=== PATIENT | male | born 1985 | race Caucasian/White ===

== ENCOUNTER 2022-06-26 21:34 | Emergency (ER) | payer OTHER, SELFPAY ==
[2022-06-26 21:40] VITALS: BP 137/79; PULSE 94; RESP 16; TEMP 36.9; O2SAT 97; BMI 22.3
--- NOTE | 2022-06-26 23:35 | ED.CHESTPAIN ---
HPI - Chest Pain General Chief Complaint: Chest Pain Stated Complaint: Chest pain, High HR Time Seen by Provider: 06/26/22 21:40 Mode of arrival: Ambulatory History of Present Illness HPI narrative: 36-year-old male nonsmoker and previously healthy patient with a relatively recent diagnosis of SVT by MI leo presents with vague chest discomfort this afternoon that seemed to be related to few hours of a rapid heart rate. We did consult his Apple watch which noted his heart rate to be in the 150s, this resolved either in the waiting room were soon after being placed in a room. He denies any new medications or dietary change. He is not dizzy nor weak or lightheaded. He admittedly has been a bit nauseated since he has been dealing with these episodes of SVT and the subsequent workup. He had been seen and evaluated at an outside facility and had subsequent cardiac referral and has had an outpatient echo and is scheduled for a stress test next week. He denies any exertional symptoms. He states that when his heart is racing he developed chest pressure, shortness of breath and lightheadedness. He denies recent travel, injury or trauma, history of blood clot or cancer Related Data Home Medications Medication Instructions Recorded Confirmed No Known Home Medications 06/26/22 06/26/22 Allergies Allergy/AdvReac Type Severity Reaction Status Date / Time ketoconazole Allergy Verified 06/26/22 21:44 Review of Systems Review of Systems Narrative: GENERAL: Denies chills, fatigue, malaise, fever, sweats. HEENT: Denies sinus pain, ear pain, sore throat, difficulty swallowing, dizziness. RESPIRATORY: Denies dyspnea, cough, wheezing, hemoptysis, sputum. CARDIOVASCULAR: see HPI GASTROINTESTINAL: see HPI : Denies dysuria, frequency, incontinence, hematuria, urinary retention. MUSCULOSKELETAL: denies weakness, joint pain, or bony pain SKIN: Denies rash, skin lesions, or other NEUROLOGIC: Denies weakness, headache, numbness, change in speech, confusion, seizures, incoordination. PSYCHIATRIC: No concerning psychosocial issues. 12 point review of systems is negative except for those stated above Patient History Social History Smoking Status: Never smoker Smoking Status: Never smoker alcohol intake frequency: other Substance Use Type: does not use Exam Narrative Exam Narrative: GENERAL: [36] year old patient appears stated age. Well-developed patient, in mild distress. HEAD: Atraumatic. Normocephalic. EYES: Pupils equal round and reactive. Extraocular motions intact. No scleral icterus. No injection or drainage. ENT: Nose without bleeding, purulent drainage. Throat without erythema, tonsillar hypertrophy or exudate. Airway patent. NECK: Trachea midline. Non tender CARDIOVASCULAR: Regular rate and rhythm without murmurs, gallops, or rubs. RESPIRATORY: Clear to auscultation. Breath sounds equal bilaterally. No wheezes, rales, or rhonchi. GASTROINTESTINAL: Abdomen soft, non-tender, nondistended. EXTREMITIES: No edema or joint tenderness. BACK: Nontender without deformity or crepitance. No flank tenderness. NEURO: AOx3. SKIN: No rash or erythema of visible areas Initial Vital Signs Initial Vital Signs: Vital Signs Temperature 98.4 F 06/26/22 21:40 Pulse Rate 94 H 06/26/22 21:40 Respiratory Rate 16 06/26/22 21:40 Blood Pressure 137/79 06/26/22 21:40 Pulse Oximetry 97 06/26/22 21:40 Oxygen Delivery Method Room Air 06/26/22 21:40 Scores HEART Score Heart Score history: Slightly Suspicious Heart Score EKG: Normal Heart Score Age: < 45 years old Heart Score risk factors: No known risk factors Heart Score troponin: < or = to normal limit Heart Score Total: 0 PERC Score Age greater than or equal to 50 years: No Heart rate greater than or equal to 100 bpm: Yes Room Air O2 Sat less than 95%: No Unilateral leg swelling: No Recent trauma or surgery: No Hemoptysis: No Prior PE or DVT: No Hormone Use: No Total PERC Score: 1 Course Orders Ordered: Discontinued Medications Aspirin (Aspirin 81 Mg Chew Tab) 324 mg PO NOW ONE Stop: 06/26/22 23:59 Last Admin: 06/27/22 00:27 Dose: Not Given Documented By: RONAK Vital Signs Vital signs: Vital Signs - 8 hr 06/26/22 21:40 Temperature 98.4 F Pulse Rate 94 H Respiratory Rate 16 Blood Pressure 137/79 Pulse Oximetry 97 Oxygen Delivery Method Room Air MDM - Chest Pain Lab Data 06/26/22 23:45 06/26/22 23:45 Labs: Lab Results 06/26/22 06/26/22 06/26/22 Range/Units 23:45 23:45 23:45 WBC 7.5 (4.5-11.0) X10^3/uL RBC 5.18 (4.5-5.9) X10^6/uL Hgb 16.1 (13.5-17.5) g/dL Hct 45.8 (41-53) % MCV 88.4 (80-100) fL MCH 31.1 (26-34) PG MCHC 35.2 (30-36) % RDW 12.5 (11.6-14.8) % Plt Count 158 (150-400) X10^3/uL Neut % (Auto) 60.3 (50-75) % Lymph % (Auto) 28.2 (25-40) % [place] % (Auto) 9.4 (3-14) % Eos % (Auto) 1.3 L (2-4) % Baso % (Auto) 0.8 (0-2) % Neut # (Auto) 4500 (1513-9512) /uL Lymph # (Auto) 2100 (0974-6266) /uL [place] # (Auto) 700 (0-900) /uL Eos # (Auto) 100 (0-450) /uL Baso # (Auto) 100 (0-100) /uL ESR (0-15) MM/HR PT 13.0 H (10.1-12.7) SECONDS INR 1.1 (0.9-1.3) APTT 33 (26-36) SECONDS D-Dimer (<500) ng/ml Sodium 136 L (137-145) mmol/L Potassium 3.5 (3.4-5.1) mmol/L Chloride 99 (98-107) mmol/L Carbon Dioxide 26 (22-32) mmol/L BUN 14 (9-20) mg/dL Creatinine 0.94 (0.66-1.25) mg/dL Estimated GFR > 60 (>60) mL/min BUN/Creatinine Ratio 14.9 (6-22) Glucose 96 (70-100) mg/dL Calcium 9.6 (8.4-10.2) mg/dL Magnesium 2.0 (1.6-2.3) mg/dL Total Bilirubin 1.6 H (0.2-1.3) mg/dL AST 25 (17-59) IU/L ALT 22 (<50) IU/L Alkaline Phosphatase 44 (38-126) U/L Total Creatine Kinase 80 (55-170) U/L CK-MB (CK-2) TNP CK-MB (CK-2) Rel Index TNP Troponin I < 0.012 (0.01-0.034) ng/mL C-Reactive Protein (<1.0) mg/dL Total Protein 8.2 (6.3-8.2) g/dL Albumin 4.9 (3.5-5.0) g/dL Globulin 3.3 (1.7-4.1) g/dL Albumin/Globulin Ratio 1.5 (1.0-2.8) Lipase 60 (23-300) U/L SARS-CoV-2 (PCR) (Negative) 06/26/22 06/26/22 06/26/22 Range/Units 23:45 23:45 23:45 WBC (4.5-11.0) X10^3/uL RBC (4.5-5.9) X10^6/uL Hgb (13.5-17.5) g/dL Hct (41-53) % MCV (80-100) fL MCH (26-34) PG MCHC (30-36) % RDW (11.6-14.8) % Plt Count (150-400) X10^3/uL Neut % (Auto) (50-75) % Lymph % (Auto) (25-40) % [place] % (Auto) (3-14) % Eos % (Auto) (2-4) % Baso % (Auto) (0-2) % Neut # (Auto) (2226-5142) /uL Lymph # (Auto) (4313-6691) /uL [place] # (Auto) (0-900) /uL Eos # (Auto) (0-450) /uL Baso # (Auto) (0-100) /uL ESR 1 (0-15) MM/HR PT (10.1-12.7) SECONDS INR (0.9-1.3) APTT (26-36) SECONDS D-Dimer 351 (<500) ng/ml Sodium (137-145) mmol/L Potassium (3.4-5.1) mmol/L Chloride (98-107) mmol/L Carbon Dioxide (22-32) mmol/L BUN (9-20) mg/dL Creatinine (0.66-1.25) mg/dL Estimated GFR (>60) mL/min BUN/Creatinine Ratio (6-22) Glucose (70-100) mg/dL Calcium (8.4-10.2) mg/dL Magnesium (1.6-2.3) mg/dL Total Bilirubin (0.2-1.3) mg/dL AST (17-59) IU/L ALT (<50) IU/L Alkaline Phosphatase (38-126) U/L Total Creatine Kinase (55-170) U/L CK-MB (CK-2) CK-MB (CK-2) Rel Index Troponin I (0.01-0.034) ng/mL C-Reactive Protein < 0.5 (<1.0) mg/dL Total Protein (6.3-8.2) g/dL Albumin (3.5-5.0) g/dL Globulin (1.7-4.1) g/dL Albumin/Globulin Ratio (1.0-2.8) Lipase (23-300) U/L SARS-CoV-2 (PCR) (Negative) 06/27/22 Range/Units 00:15 WBC (4.5-11.0) X10^3/uL RBC (4.5-5.9) X10^6/uL Hgb (13.5-17.5) g/dL Hct (41-53) % MCV (80-100) fL MCH (26-34) PG MCHC (30-36) % RDW (11.6-14.8) % Plt Count (150-400) X10^3/uL Neut % (Auto) (50-75) % Lymph % (Auto) (25-40) % [place] % (Auto) (3-14) % Eos % (Auto) (2-4) % Baso % (Auto) (0-2) % Neut # (Auto) (0285-4468) /uL Lymph # (Auto) (7907-0514) /uL [place] # (Auto) (0-900) /uL Eos # (Auto) (0-450) /uL Baso # (Auto) (0-100) /uL ESR (0-15) MM/HR PT (10.1-12.7) SECONDS INR (0.9-1.3) APTT (26-36) SECONDS D-Dimer (<500) ng/ml Sodium (137-145) mmol/L Potassium (3.4-5.1) mmol/L Chloride (98-107) mmol/L Carbon Dioxide (22-32) mmol/L BUN (9-20) mg/dL Creatinine (0.66-1.25) mg/dL Estimated GFR (>60) mL/min BUN/Creatinine Ratio (6-22) Glucose (70-100) mg/dL Calcium (8.4-10.2) mg/dL Magnesium (1.6-2.3) mg/dL Total Bilirubin (0.2-1.3) mg/dL AST (17-59) IU/L ALT (<50) IU/L Alkaline Phosphatase (38-126) U/L Total Creatine Kinase (55-170) U/L CK-MB (CK-2) CK-MB (CK-2) Rel Index Troponin I (0.01-0.034) ng/mL C-Reactive Protein (<1.0) mg/dL Total Protein (6.3-8.2) g/dL Albumin (3.5-5.0) g/dL Globulin (1.7-4.1) g/dL Albumin/Globulin Ratio (1.0-2.8) Lipase (23-300) U/L SARS-CoV-2 (PCR) Negative (Negative) MDM Narrative Medical decision making narrative: CC: 36-year-old with recent diagnosis of SVT presents with rapid heart rate Complicating co-morbidities: Recent diagnosis of SVT Data collected from: Patient Medical records reviewed: Prior notes reviewed in our EMR Differential considered, but not limited to: SVT, other tachyarrhythmia, cardiac ischemia, pulmonary embolism, pericarditis versus other Exam documented above, pertinent findings include: Heart rate regular, lungs clear, no evidence of labored breathing, abdomen soft and nontender Lab Test results independently reviewed as above. Pertinent findings: No significant abnormal findings, no leukocytosis or left shift, no signs of anemia, electrolytes and renal function within normal, troponin within normal, D-dimer below cutoff Independently reviewed EKG as above Imaging studies independently reviewed: Records reviewed from outside facility from a few days ago and chest x-ray was clear, we discussed repeating but elected not to given lack of current symptoms Scores Used: HEART Score Treatments: ASA Re-evaluations: Patient is essentially asymptomatic for duration of visit Discussion: Patient with a few episodes of rapid heart rate with associated chest pain, shortness of breath and lightheadedness over the past few weeks. He had been worked up at another facility and had cardiac referral, TREMAYNEO ahmet demonstrated SVT in the 150s. Patient had another episode today, we reviewed the findings on his smart watch which noted a heart rate in the 150s just prior to his arrival which correlates with his symptoms. Symptoms had resolved prior to his evaluation. Otherwise history, physical, labs EKG are very reassuring. D-dimer negative, no indication for CT angiogram. Patient has close follow-up already arranged with Cardiology, no indication for medications or other intervention or workup at this time. Disposition: see below, along with detailed discharge instructions that have been reviewed with patient as well as indications for ED re-evaluation and additional outpatient follow up Discharge Plan Departure Patient Disposition: Home Clinical Impression: Tachyarrhythmia Instructions: DI for Arrhythmias Activity Restrictions/Additional Instructions: *You have been diagnosed with [atypical chest pain, tachyarrhythmia, likely SVT. As we discussed your history and physical exam as well as EKG, labs are very reassuring and there is no evidence of heart attack, blood clot, electrolyte abnormality or other diagnosis which would require a specific or immediate intervention] *What to do: *Please continue to take your regular medications as directed. *Please follow up with your primary care provider in 2-3 days, call for an appointment. Let them know you were seen in the Emergency Department and that we ask that you be seen in follow up. We will electronically transmit a record of today's note if your PCP is in our system *If you do not have a primary care provider please contact the [facility] Resource line at [phone]. They will ask some questions about your medical history and help get you set up with a doctor in the community. *Return to Emergency Department if you should have any new, worsening or concerning symptoms, such as [fever greater than 101 F, shaking chills, worsening pain, persistent vomiting or other bothersome symptoms] Prescriptions: No Action No Known Home Medications Referrals: ProviderJudy [Primary Care Provider] - Stand Alone Forms: Patient Portal/API
[2022-06-26 23:55] VITALS: PULSE 78; RESP 11; O2SAT 100
[2022-06-26 23:56] VITALS: BP 136/71; PULSE 75; RESP 13; O2SAT 100
[2022-06-27] VITALS: BP 132/70; PULSE 72; RESP 13; O2SAT 100
--- NOTE | 2022-06-27 00:01 | PC.NURSE ---
Pt reports worsening, constant chest pain for the past 5-8 hours, and some lightheadedness. Pt recently seen at [facility] for similar issue and also 2 months prior for on and off chest pain. Pt reports he sees a housekeeper and laundry assistant and [place] patch showed some symptomatic SVT and occasional PVC's and PAC's. Pt denies SOB, denies N&V. Encouraged to use call light for any needs.
[2022-06-27 00:05] LABS: INR 1.1 (0.9-1.3)
[2022-06-27 00:07] LABS: PTT Partial Thromboplastin Tim 33 SECONDS (26-36)
[2022-06-27 00:08] LABS: Add Manual Diff / Slide Review NO; Basophils Absolute Auto 100 /uL (0-100); Basophils Percent Auto 0.8 % (0-2); Eosinophils Absolute Auto 100 /uL (0-450); Eosinophils Percent Auto 1.3 % (2-4); Hematocrit 45.8 % (41-53); Hemoglobin 16.1 g/dL (13.5-17.5); Lymphocytes Absolute Auto 2100 /uL (1100-4500); Lymphocytes Percent Auto 28.2 % (25-40); Mean Corpuscular HGB Conc 35.2 % (30-36); Mean Corpuscular Hemoglobin 31.1 PG (26-34); Mean Corpuscular Volume 88.4 fL (80-100); Monocytes Absolute Auto 700 /uL (0-900); Monocytes Percent Auto 9.4 % (3-14); Neutrophils Absolute Auto 4500 /uL (1500-7000); Neutrophils Percent Auto 60.3 % (50-75); Platelet Count 158 X10^3/uL (150-400); Red Blood Cell Count 5.18 X10^6/uL (4.5-5.9); Red Cell Distribution Width 12.5 % (11.6-14.8); White Blood Cell Count 7.5 X10^3/uL (4.5-11.0)
[2022-06-27 00:11] LABS: Alanine Aminotransferase 22 IU/L (<50); Albumin 4.9 g/dL (3.5-5.0); Albumin Globulin Ratio 1.5 (1.0-2.8); Alkaline Phosphatase 44 U/L (38-126); Aspartate Aminotransferase 25 IU/L (17-59); BUN Creatinine Ratio 14.9 (6-22); Bilirubin Total 1.6 mg/dL (0.2-1.3); Blood Urea Nitrogen 14 mg/dL (9-20); Calcium 9.6 mg/dL (8.4-10.2); Carbon Dioxide 26 mmol/L (22-32); Chloride 99 mmol/L (98-107); Creatine Kinase 80 U/L (55-170); Estimated Glomerular Filt Rate > 60 mL/min (>60); Globulin 3.3 g/dL (1.7-4.1); Glucose 96 mg/dL (70-100); HEMOLYSIS < 15 (0-50); Lipase 60 U/L (23-300); Potassium 3.5 mmol/L (3.4-5.1); Sodium 136 mmol/L (137-145); Total Protein 8.2 g/dL (6.3-8.2)
[2022-06-27 00:21] LABS: Troponin I < 0.012 ng/mL (0.01-0.034)
[2022-06-27 00:30] VITALS: BP 124/70; PULSE 67; RESP 15; O2SAT 96
[2022-06-27 00:32] LABS: COVID19 -Nasal RAPID Negative (Negative)
[2022-06-27 00:55] LABS: D Dimer 351 ng/ml (<500)
[2022-06-27 00:58] LABS: C-Reactive Protein Quant < 0.5 mg/dL (<1.0)
[2022-06-27 01:00] VITALS: BP 128/75; PULSE 77; RESP 20; O2SAT 98
[2022-06-27 01:09] LABS: Erythrocyte Sedimentation Rate 1 MM/HR (0-15)
[2022-06-27 01:30] VITALS: BP 128/71; PULSE 67; RESP 17; O2SAT 98
[2022-06-27 02:00] VITALS: BP 131/76; PULSE 68; RESP 16; O2SAT 97
== END 2022-06-27 02:24 | disposition home or self-care (01) ==
PROVIDERS: Emergency Provider Emergency Medicine
DX: R00.0 Tachycardia, unspecified (principal); Z20.822 Contact with and (suspected) exposure to COVID-19
CPT/HCPCS: 36415; 80053; 82550; 83690; 83735; 84484; 85025; 85379; 85610; 85651; 85730; 86140; 87635; 93005; 99283; 99284; C9803

== ENCOUNTER 2022-09-09 07:48 | Day surgery (SDC) | payer OTHER, SELFPAY ==
--- NOTE | 2022-09-09 | PATH_ITS ---
[facility] Accession Number: [id number] No. of containers..01 Tissue . 01 Material submitted: . esophagus - STOMACH AND ESOPHAGUS . 01 Diagnosis: Stomach and Esophagus, Biopsies: Gastric oxyntic mucosa with mild chronic inflammation. Esophageal squamous mucosa with mild reactive features of reflux esophagitis. Negative for Helicobacter organisms by immunohistochemistry. Negative for fungal organisms on PAS stain. Negative for intestinal metaplasia. Negative for dysplasia or malignancy. MR 09/16/2022 1433 Local . 01 Electronically signed: . Edwin Mckinney MD, PhD, Pathologist NPI- [id number] . 01 Gross description: . STOMACH AND ESOPHAGUS: Received in formalin are 2 fragment(s) of caruso, soft tissue measuring 0.1 x 0.1 x 0.1 cm to 0.3 x 0.3 x 0.3 cm submitted entirely in 1 cassette(s) /SINDI 09/14/2022 1944 Local . 01 Microscopic: . An immunohistochemical stain is negative for Helicobacter organisms. An AB/PAS stain is negative for fungal organisms. Control stains show appropriate reactivity. . * This test was developed and its performance characteristics determined by [facility]. It has not been cleared or approved by the U.S. Food and Drug Administration. The FDA has determined that such clearance or approval is not necessary. This test is used for clinical purposes. It should not be regarded as investigational or for research. . 01 Pathologist provided ICD-10: K29.70, K21.9 . 01 CPT . 703617, L35845, 617874 Performed at: 01 [facility] [address] [place] [address] [address], [place], [place] [id number] MD Nael Zafar MD Phone: [phone]
[2022-09-09 08:22] VITALS: BP 141/94; PULSE 69; RESP 16; TEMP 36; O2SAT 98; BMI 20.5
--- NOTE | 2022-09-09 08:26 | PM.PREOP ---
Pre-operative Note COVID-19 COVID-19 status: Negative Interval Note History & Physical reviewed/Exam performed by Physician: Yes Changes to H&P: No ASA Class (for procedural sedation): I
--- NOTE | 2022-09-09 08:27 | PM.OP.EC ---
Operative Date/Time/Diagnoses Date of procedure: 09/09/22 Pre-op diagnosis: See indication and findings Procedure & Clinicians Study performed: EGD and colonoscopy Indications: GERD and rectal bleeding Surgeon: Polina Jones Procedure Notes Procedure in detail: after informed consent was obtained the patient was placed in left lateral decubitus position. The video upper scope was placed into the oropharynx and with the patient's help swelled into the esophagus. The esophagus stomach and duodenum were carefully examined. On withdrawal, retroflexed view the GE junction was performed. The scope was removed. The patient tolerated procedure well. The patient was then turned and the colonoscope substituted. This was introduced the rectum and slowly advanced to the cecum. Preparation was good. On slow withdrawal mucosa was carefully examined. The scope was removed. The patient tolerated procedure well. Blood loss none Complications none Sedation mac Findings EGD 1. Very faint rings in the mid to distal esophagus biopsies taken to rule out eosinophilic esophagitis. Otherwise completely normal esophagus without a hiatal hernia 2. Stomach with the exception of 1 4 mm polyp in the greater curvature/body which was biopsied and removed almost completely 3. Normal duodenal bulb and sweep Colonoscopy 1. Trivial internal hemorrhoids 2. Otherwise completely negative colonoscopy to cecum We will be in touch regarding biopsies. Further recommendations will follow
[2022-09-09] MEDS: LACTATED RINGERS 1,000 ML 42 ML IV (08:44)
[2022-09-09 09:49] VITALS: BP 131/82; PULSE 64; RESP 16; TEMP 36.5; O2SAT 98
[2022-09-09 09:54] VITALS: BP 127/84; PULSE 68; RESP 12; O2SAT 98
[2022-09-09 09:59] VITALS: BP 134/78; PULSE 67; RESP 14; TEMP 36.6; O2SAT 97
[2022-09-09 10:24] VITALS: BP 133/86; PULSE 62; RESP 16; TEMP 36.7; O2SAT 100
== END 2022-09-09 10:34 | disposition home or self-care (01) ==
PROVIDERS: PCP Student in an Organized Health Care Education/Training Program; Referring Provider Internal Medicine Gastroenterology; Visit Provider Internal Medicine Gastroenterology
PROC: 0DJ08ZZ Inspection of Upper Intestinal Tract, Via Natural or Artificial Opening Endoscopic (ICD-10-PCS; CPT 43235; principal; 2022-09-09 09:00)
PROC: 0DJD8ZZ Inspection of Lower Intestinal Tract, Via Natural or Artificial Opening Endoscopic (ICD-10-PCS; CPT 45378; 2022-09-09 09:00)
DX: K62.5 Hemorrhage of anus and rectum (principal); K21.9 Gastro-esophageal reflux disease without esophagitis; K64.8 Other hemorrhoids; K29.50 Unspecified chronic gastritis without bleeding
CPT/HCPCS: 45378; 43239; J2704

== ENCOUNTER 2023-06-12 08:37 | Emergency (ER) | payer OTHER, SELFPAY ==
[2023-06-12 08:48] VITALS: BP 130/67; PULSE 67; RESP 16; TEMP 36.5; O2SAT 99; BMI 23.0
[2023-06-12 08:49] VITALS: PULSE 75; O2SAT 100
--- NOTE | 2023-06-12 08:49 | ED_ITS ---
HPI - Abdominal Pain General Chief Complaint: Abdominal Pain Stated Complaint: upper ABD pain/ breathing feels labored Time Seen by Provider: 06/12/23 08:49 History of Present Illness HPI narrative: Patient is a 37-year-old male with history of SVT by MI leo, presents today with some epigastric discomfort. He reports for the last 2-3 days he has had a dull ache in his epigastric region. No real right upper quadrant pain no nausea vomiting. Be sent need to take anything for pain. He denies any chest pain or palpitations. No fever or chills. He reports that he is going on a trip tomorrow just wants to make sure that he is okay. Related Data Home Medications Medication Instructions Recorded Confirmed hydroxyzine HCl 25 mg tablet mg 09/09/22 pantoprazole 40 mg tablet,delayed 40 mg PO DAILY 09/09/22 09/09/22 release Allergies Allergy/AdvReac Type Severity Reaction Status Date / Time ketoconazole Allergy Verified 06/12/23 08:48 Patient History Medical History Joint pain Anxiety Social History household members: spouse Smoking Status: Never smoker alcohol intake: former Smoking Status: Never smoker alcohol intake frequency: other Substance Use Type: does not use Exam Initial Vital Signs Initial Vital Signs: Vital Signs Temperature 97.7 F 06/12/23 08:48 Pulse Rate 67 06/12/23 08:48 Respiratory Rate 16 06/12/23 08:48 Blood Pressure 130/67 06/12/23 08:48 Pulse Oximetry 99 06/12/23 08:48 Oxygen Delivery Method Room Air 06/12/23 08:48 GENERAL: Alert pleasant 37-year-old and in no acute distress. HEENT: Head atraumatic,EOMI, pupils reactive, face symmetric, moist mucous membranes CARDIOVASCULAR: Regular rate and rhythm without murmurs, rubs or gallops. RESPIRATORY: Breath sounds equal bilaterally, no wheezes rales or rhonchi. Pain is under her xiphoid process, minimally reproducible ABDOMEN: Soft, nontender. Normoactive bowel sounds all 4 quadrants. No guarding or rebound. Negative Del Real sign no real epigastric pain pain is not reproducible EXTREMITIES: Normal range of motion, no clubbing or edema. Neurovascularly intact NEUROLOGICAL: Alert and oriented x4.Normal gait and speech. SKIN: Warm, dry, no laceration, no petechiae, no rashes or lesions. Scores PERC Score Age greater than or equal to 50 years: No Heart rate greater than or equal to 100 bpm: No Room Air O2 Sat less than 95%: No Unilateral leg swelling: No Recent trauma or surgery: No Hemoptysis: No Prior PE or DVT: No Hormone Use: No Total PERC Score: 0 Course Orders Ordered: ED Orders 06/12/23 08:50 Complete Blood Count AUTO DIFF Stat Comprehensive Metabolic Panel Stat Lipase Stat 06/12/23 09:18 Urine Microscopic Stat Vital Signs Vital signs: Vital Signs - 8 hr 06/12/23 08:48 Temperature 97.7 F Pulse Rate 67 Respiratory Rate 16 Blood Pressure 130/67 Pulse Oximetry 99 Oxygen Delivery Method Room Air MDM - Abdominal Pain Lab Data 06/12/23 08:50 06/12/23 08:50 Labs: Lab Results 06/12/23 Range/Units 08:50 WBC 5.7 (4.5-11.0) X10^3/uL RBC 5.25 (4.5-5.9) X10^6/uL Hgb 15.9 (13.5-17.5) g/dL Hct 46.2 (41-53) % MCV 87.9 (80-100) fL MCH 30.2 (26-34) PG MCHC 34.4 (30-36) % RDW 12.6 (11.6-14.8) % Plt Count 142 L (150-400) X10^3/uL Neut % (Auto) 54.4 (50-75) % Lymph % (Auto) 31.9 (25-40) % [place] % (Auto) 9.3 (3-14) % Eos % (Auto) 3.4 (2-4) % Baso % (Auto) 1.0 (0-2) % Neut # (Auto) 3100 (9902-0113) /uL Lymph # (Auto) 1800 (1997-2093) /uL [place] # (Auto) 500 (0-900) /uL Eos # (Auto) 200 (0-450) /uL Baso # (Auto) 100 (0-100) /uL Sodium 136 L (137-145) mmol/L Potassium 4.1 (3.4-5.1) mmol/L Chloride 104 (98-107) mmol/L Carbon Dioxide 30 (22-32) mmol/L BUN 17 (9-20) mg/dL Creatinine 0.95 (0.66-1.25) mg/dL Estimated GFR > 60 (>60) mL/min BUN/Creatinine Ratio 17.9 (6-22) Glucose 90 (70-100) mg/dL Calcium 9.6 (8.4-10.2) mg/dL Total Bilirubin 1.3 (0.2-1.3) mg/dL AST 26 (17-59) IU/L ALT 25 (<50) IU/L Alkaline Phosphatase 45 (38-126) U/L Total Protein 7.7 (6.3-8.2) g/dL Albumin 4.5 (3.5-5.0) g/dL Globulin 3.2 (1.7-4.1) g/dL Albumin/Globulin Ratio 1.4 (1.0-2.8) Lipase 94 (23-300) U/L Point of care testing: Urine Dip Bedside Urine Glucose Negative Bedside Urine Bilirubin - Negative Bedside Urine Ketone - Negative Urine Specific [place] 1.015 Bedside Urine Occult Blood + Bedside Urine pH 7.0 Bedside Urine Protein - Negative Bedside Urine Urobilinogen - Negative Bedside Urine Nitrite - Negative Bedside Urine Leukocytes - Negative Esterase MDM Narrative Medical decision making narrative: Patient is a healthy well-appearing 37-year-old male who presents with mild epigastric pain for 2-3 days. No nausea or vomiting he has a negative Del Real's sign no right upper quadrant pain having any other palpitations or SVT like symptoms. Blood work has been reviewed no clinical significant abnormalities Patient is not having any right upper quadrant pain nausea or vomiting having kind of costochondritis like. It is pinpoint right under the xiphoid process. No nausea vomiting no fever no leukocytosis or evidence of infection. At this time I really think need for imaging. Unlikely to be cholelithiasis or cholecystitis although considered. I think unlikely to be a pulmonary embolism he has a negative PERC score. Recommend supportive care if symptoms worse then return Heart rate is stable and less than 100 unlikely to be SVT. Not having any symptoms of his SVT. Discharge Plan Departure Patient Disposition: Home Clinical Impression: Acute costochondritis Instructions: DI for Costochondritis Activity Restrictions/Additional Instructions: *You have been diagnosed with costochondritis *What to do: This time I think sprain or strain is more likely. Continue to monitor try ice or heat. Supportive care. *Continue to take medications as directed Tylenol Motrin as needed *Follow up with your primary care provider in 2-3 days or call [phone] *Return to ER if you should have increasing pain shortness of breath nausea vomiting or any new, worsening or concerning symptoms Prescriptions: No Action pantoprazole 40 mg Tablet,Delayed Release (Dr/Ec) 40 mg PO DAILY hydroxyzine HCl 25 mg tablet Patient Comments: weeks ago Referrals: Romeo Min MD [Primary Care Provider] - Stand Alone Forms: Patient Portal/API
[2023-06-12 09:00] VITALS: PULSE 59; O2SAT 100
[2023-06-12 09:01] LABS: Basophils Absolute Auto 100 /uL (0-100); Eosinophils Absolute Auto 200 /uL (0-450); Hemoglobin 15.9 g/dL (13.5-17.5); Lymphocytes Absolute Auto 1800 /uL (1100-4500); Monocytes Absolute Auto 500 /uL (0-900); Platelet Count 142 X10^3/uL (150-400); Red Blood Cell Count 5.25 X10^6/uL (4.5-5.9)
[2023-06-12 09:08] LABS: Alanine Aminotransferase 25 IU/L (<50); Albumin 4.5 g/dL (3.5-5.0); Albumin Globulin Ratio 1.4 (1.0-2.8); Alkaline Phosphatase 45 U/L (38-126); Aspartate Aminotransferase 26 IU/L (17-59); BUN Creatinine Ratio 17.9 (6-22); Bilirubin Total 1.3 mg/dL (0.2-1.3); Blood Urea Nitrogen 17 mg/dL (9-20); Calcium 9.6 mg/dL (8.4-10.2); Carbon Dioxide 30 mmol/L (22-32); Chloride 104 mmol/L (98-107); Estimated Glomerular Filt Rate > 60 mL/min (>60); Globulin 3.2 g/dL (1.7-4.1); Glucose 90 mg/dL (70-100); HEMOLYSIS < 15 (0-50); Lipase 94 U/L (23-300); Potassium 4.1 mmol/L (3.4-5.1); Sodium 136 mmol/L (137-145); Total Protein 7.7 g/dL (6.3-8.2)
[2023-06-12 09:11] LABS: Add Manual Diff / Slide Review NO; Eosinophils Percent Auto 3.4 % (2-4); Hematocrit 46.2 % (41-53); Lymphocytes Percent Auto 31.9 % (25-40); Mean Corpuscular HGB Conc 34.4 % (30-36); Mean Corpuscular Hemoglobin 30.2 PG (26-34); Mean Corpuscular Volume 87.9 fL (80-100); Monocytes Percent Auto 9.3 % (3-14); Neutrophils Absolute Auto 3100 /uL (1500-7000); Neutrophils Percent Auto 54.4 % (50-75); Red Cell Distribution Width 12.6 % (11.6-14.8); White Blood Cell Count 5.7 X10^3/uL (4.5-11.0)
[2023-06-12 09:30] VITALS: PULSE 58; O2SAT 100
[2023-06-12 09:46] VITALS: BP 115/68; PULSE 58; RESP 18; O2SAT 100
[2023-06-12 09:49] VITALS: BP 115/68
[2023-06-12 10:20] LABS: Bacteria Urine Occasional (0-1); Culture Indicated Urine Cult Not Indicated; Mucus Urine 1+ (Negative); RBC Urine 1-5/HPF (0-5/HPF); Squamous Epithelial Cell Urine None Seen (0-5/HPF); Urine Volume 10mL (spun); WBC Urine 0-1/HPF (0-5/HPF)
== END 2023-06-12 09:50 | disposition home or self-care (01) ==
PROVIDERS: Emergency Provider Emergency Medicine; PCP Student in an Organized Health Care Education/Training Program
DX: M94.0 Chondrocostal junction syndrome [Tietze] (principal)
CPT/HCPCS: 36415; 80053; 81003; 81015; 83690; 85025; 99283